=== PATIENT | female | born 1935 | race Caucasian/White ===

== ENCOUNTER 2018-05-12 15:31 | Emergency (ER) | payer MEDICARE, BC ==
[~2018-05-12] VITALS: Ht 162.6 cm; Wt 62.7 kg
[~2018-05-12 15:31] MED LIST: K-DUR20 MEQ; LIPITOR40 MG PO; MULTI-DAY VITAM1 TAB PO; TENORETIC PO
[2018-05-12 15:40] VITALS: Ht 162.6 cm; Wt 62.7 kg
[2018-05-12 20:28] VITALS: BP 123/64
[2018-05-25 11:42] VITALS: Ht 162.6 cm; Wt 62.7 kg
== END 2018-05-12 20:29 | disposition home or self-care (01) ==
LOC: D.ER 15:31
DX: M25.561 Pain in right knee (principal); S89.91XD Unspecified injury of right lower leg, subsequent encounter; X58.XXXD Exposure to other specified factors, subsequent encounter

== ENCOUNTER 2018-05-25 11:05 | Day surgery (SDC) | payer MEDICARE, BC ==
[2018-05-22 12:21] LABS: ANION GAP 9.4 mmol/L (8-16); CALCIUM 9.9 mg/dL (8.5-10.1); CARBON DIOXIDE 33.2 mmol/L (21.0-32.0); CREATININE - SERUM 0.8 mg/dL (0.6-1.3); POTASSIUM - SERUM 4.6 mmol/L (3.5-5.1)
[2018-05-22 12:28] LABS: BASOPHILS 0.3 % (0-2); EOSINOPHILS 1.4 % (0-7); HEMATOCRIT 46.5 % (36.0-48.0); HEMOGLOBIN 15.5 g/dL (12-16); IMMATURE GRANULOCYTES 0.3 % (0-5); LYMPHOCYTES 22.9 % (15-50); MCHC 33.3 g/dL (31.0-37.0); MCV 90.1 fL (80.0-100.0); MEAN PLATELET VOLUME 10.9 fL (7.4-10.4); MONOCYTES 14.8 % (2-11); NEUTROPHILS 60.3 % (40-80); PLATELET COUNT 209 10x3/uL (130-400); RBC 5.16 10x6/uL (4.00-5.40); WBC 7.2 10x3/uL (4.8-10.8)
[~2018-05-25] VITALS: Ht 160 cm; Wt 62.1 kg
--- NOTE | ~2018-05-25 | OP ---
PATIENT NAME: ROSALBA FREED MEDICAL RECORD: [id number] :35 LOCATION:[facility] ADMISSION DATE: SURGEON: ANNI BLOUNT MD DATE OF OPERATION: 05/25/2018 PREOPERATIVE DIAGNOSIS: Symptomatic loose body of the right knee. POSTOPERATIVE DIAGNOSIS: Symptomatic loose body of the right knee. PROCEDURE: Arthroscopic removal of loose body. SURGEON: Anni Blount MD ANESTHESIA: General. INTRAOPERATIVE COMPLICATIONS: None. SUMMARY OF PATHOLOGIC FINDINGS: The patient had a very large popcorn style loose body. INDICATIONS: An 83-year-old female over the course of time had several locking occasions that would cause her to fall. At the time of her initial evaluation in my clinic, she did not complain of arthritic type pain, although she clearly has areas of grade IV arthritis. She complained of locking and inability to flex or extend her knee. Radiograph showed a loose body, which was found today in the intercondylar notch. OPERATIVE SUMMARY IN DETAIL: After obtaining the appropriate preoperative orthopedic surgery consent as well as anesthetic consultation, evaluation and clearance, the patient was brought to the operating room and placed on the operating table in supine position. After general laryngeal mask airway was administered, tourniquet was placed on the proximal aspect of the right lower extremity. Right lower extremity was then prepped and draped in routine sterile fashion. The leg was elevated and exsanguinated, tourniquet was inflated to 350 mmHg. Routine inferolateral portal was established followed by superior medial portal and inferomedial portal. 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 One place obviously looked like a cleft that was left behind from this loose body. The loose body was found free floating in the intercondylar notch. It was grasped and removed in its entirety and sent to pathology for permanent specimen. Having completed this, the knee was insufflated with 80 mg of Depo-Medrol and 30 cc of 0.25% Marcaine plain. The arthroscopy portals were closed in routine interrupted fashion using 4-0 Prolene. Sterile dressings applied. Tourniquet was deflated. The patient was awakened and taken to the recovery room in stable condition. All final needle and sponge counts were correct. TRANSINT:[id number] Voice Confirmation ID: [id number] DOCUMENT ID: [id number] OPERATIVE REPORT [id number] ROSALBA FREED MD, ANNI HERNANDEZ at 1340 CC: [id number] DICTATION DATE: 05/25/18 1527 SENIOR DIRECTOR OF STRATEGY: 05/25/18 1542 [facility] 05/25/18 [facility] [address] [id number]
[2018-05-25] MEDS ORDERED: CALCIUM 500 + D1 TAB PO (11:33)
[2018-05-25 11:42] VITALS: BP 129/57; Ht 160 cm; Wt 62.1 kg
[2018-05-25] MEDS ORDERED: HYDROCODONE-APA1 TAB PO (14:11)
== END 2018-05-25 16:20 | disposition home or self-care (01) ==
LOC: D.OPS 11:05 → D.PAN 13:15 → D.OPS 13:15 → D.PAN 14:05 → D.OPS 14:30
PROVIDERS: Anesthesiology
DX: M23.41 Loose body in knee, right knee (principal); Z01.812 Encounter for preprocedural laboratory examination